=== PATIENT | male | born 1945 | race Caucasian/White ===

== ENCOUNTER 2017-04-09 09:33 | Inpatient (IN) | payer MEDICARE ==
[~2017-04-09] VITALS: Ht 170.2 cm; Wt 85.7 kg
--- NOTE | 2017-04-09 09:33 | NUR ---
Patient was BIBA and taken to bed 01 via gurney.
[2017-04-09 09:35] VITALS: BP 137/88
--- NOTE | 2017-04-09 09:50 | NUR ---
72 YO MALE BIB EMS FROM [facility] FOR POSSIBLE RECTAL BLEEDING. DENIES N/V/D; SKIN IS PINK/WARM/DRY; LUNGS CLEAR BL; HR EVEN AND REGULAR; PT DENIES ANY FEVER, CP, SOB, OR COUGH AT THIS TIME; PATIENT STATES PAIN OF 0/10 AT THIS TIME; VSS; PATIENT POSITIONED FOR COMFORT; HOB ELEVATED; BEDRAILS UP X2; BED DOWN. ER MD MADE AWARE OF PT STATUS.
[2017-04-09] MEDS ORDERED: DABI150C PO (09:58)
[2017-04-09] MEDS ORDERED: LEVE500T9 PO (09:58)
[2017-04-09] MEDS ORDERED: [UNRECOGNIZED DRUG - CODE] PO (09:58)
[2017-04-09] MEDS ORDERED: AMIO200T2 PO ×2 (09:58)
[2017-04-09] MEDS ORDERED: DEC4 PO (09:58)
[2017-04-09] MEDS ORDERED: ALPR0.5T2 PO (09:58)
[2017-04-09] MEDS ORDERED: ATOR20TA PO (09:58)
[2017-04-09] MEDS ORDERED: NOVN SUBQ (09:58)
[2017-04-09] MEDS ORDERED: VITA1TAB44 PO (09:58)
[2017-04-09] MEDS ORDERED: NOVR SUBQ (09:58)
[2017-04-09] MEDS ORDERED: TAMS0.4C96 PO (09:58)
[2017-04-09] MEDS ORDERED: FURO-572 PO (09:58)
[2017-04-09] MEDS ORDERED: CARER90 PO (09:58)
[2017-04-09] MEDS ORDERED: DOCU-299 PO (09:58)
[2017-04-09] MEDS ORDERED: OMEP20TC12 PO (09:58)
[2017-04-09] MEDS ORDERED: NACL 0.9% 1,000 ML IV ONE (10:05)
[2017-04-09 11:03] LABS: PROTHROMBIN TIME 12.7 secs (10.8-13.4)
[2017-04-09 11:07] LABS: CARBON DIOXIDE 25.7 mmol/L (21-32); CREATININE 1.2 mg/dL (0.7-1.3); POTASSIUM 4.7 mmol/L (3.5-5.1)
--- NOTE | 2017-04-09 11:10 | NUR ---
AAO IRISH SPEAKING PT REPOSITIONED FOR COMFORT WITH SON (PHYSICIAN) AT BEDSIDE
[2017-04-09 11:13] LABS: ALBUMIN 1.3 g/dL (3.4-5.0); TOTAL BILIRUBIN 0.9 mg/dL (0.0-1.0)
[2017-04-09 11:24] LABS: BASOPHILS # (AUTO) 0.1 K/uL (0.00-0.22); BASOPHILS % (AUTO) 0.8 % (0.0-2.0); EOSINOPHILS # (AUTO) 0.1 K/uL (0-0.4); HEMATOCRIT 25.2 % (36-52); HEMOGLOBIN 8.6 g/dL (12.0-18.0); LYMPHOCYTES # (AUTO) 0.3 K/uL (2.0-11.5); LYMPHOCYTES % (AUTO) 2.9 % (20.5-51.1); MEAN CORPUSCULAR HEMOGLOBIN 27 pg (27-31); MEAN CORPUSCULAR HGB CONC 34 g/dL (33-37); MEAN CORPUSCULAR VOLUME 78 fL (80-94); MONOCYTES # (AUTO) 0.2 K/uL (0.8-1.0); MONOCYTES % (AUTO) 1.7 % (1.7-9.3); NEUTROPHILS % (AUTO) 93.6 % (42.2-75.2); PLATELET COUNT (AUTO) 159 K/uL (140-450); RED BLOOD CELL COUNT(AUTO) 3.22 MIL/uL (4.20-6.10); RED CELL DISTRIBUTION WIDTH 21.1 % (11.6-13.7); WHITE BLOOD COUNT (AUTO) 11.7 K/uL (4.8-10.8)
[2017-04-09] MEDS ORDERED: NACL 0.9% 2,000 ML IV ONE (11:45)
[2017-04-09] MEDS ORDERED: MORPHINE SULFATE 2 MG/ML SYR IVP ONE (11:50)
--- NOTE | 2017-04-09 12:07 | NUR ---
REPOSITIONED TO LEFT SIDE WITH JAMAR DICKERSON ASSISTANCE AND SON AT BEDSIDE
[2017-04-09] MEDS ORDERED: ONDANSETRON 4 MG/2 ML VIAL IVP PRN (12:20)
[2017-04-09] MEDS ORDERED: HYDROcodone/APAP 7.5/325 MG 1 TAB PO PRN (12:20)
[2017-04-09] MEDS ORDERED: ACETAMINOPHEN 325 MG TAB PO PRN (12:20)
[2017-04-09] MEDS ORDERED: ALPRAZolam 0.5 MG TAB PO PRN (12:40)
[2017-04-09] MEDS ORDERED: INSULIN LISPRO SLIDING SCALE 100 UNITS/ML VIAL SUBQ PRN (12:55)
[2017-04-09] MEDS ORDERED: DEXTROSE 50% 50 ML SYR IVP PRN ×2 (12:55→16:45)
[2017-04-09 13:34] LABS: CHOL/HDL RATIO 2.6 (1-4.5); FREE T4 (FREE THYROXINE) 1.29 ng/dL (0.76-1.46); MAGNESIUM 1.8 mg/dL (1.8-2.4); PHOSPHORUS 4.5 mg/dL (2.5-4.9); THYROID STIMULATING HORMONE 0.02 uIU/mL (0.34-3.74)
[2017-04-09 15:30] VITALS: BP 136/85
--- NOTE | 2017-04-09 15:30 | NUR ---
Patient will be admitted to care of DR SHER. Admited to ICU. Will go to room ICU7. Belongings list completed. Report to BUCKY VIVEROS.
[2017-04-09 16:00] VITALS: BP 124/78
[2017-04-09 16:13] LABS: HEMATOCRIT 23.9 % (36-52); HEMOGLOBIN 7.8 g/dL (12.0-18.0)
--- NOTE | 2017-04-09 16:45 | NUR ---
AT BEDSIDE. ADM. INFORMATION OBTAINED FROM .
--- NOTE | 2017-04-09 17:00 | NUR ---
ECHOCARDIOGRAM DONE AT BEDSIDE.
[2017-04-09] MEDS: BLOOD GLUCOSE MONITORING 1 DEV DEV FS SCH ×2 (17:01→21:00)
[2017-04-09] MEDS: DEXT 5% /NACL 0.9% 1,000 ML IV SCH (17:01)
--- NOTE | 2017-04-09 17:01 | NUR ---
IV D5 0.9NS STARTED AT 50 ML/HR VIA LEFT AC IV SITE.
[2017-04-09] MEDS ORDERED: HYDROmorphone 1 MG/ML AMP IVP PRN (17:05)
--- NOTE | 2017-04-09 17:30 | NUR ---
ADMITTED FROM ER THIS 72 YR. OLD MALE PER [facility]IA [facility]. BY ER NURSES WITH CC OF RECTAL BLEEDING. UNABLE TO OBTAIN INFO FROM PT. DUE TO BEING DROWSY. FOLLOWS SIMPLE COMMANDS. HEPLOCK ON LEFT AC. BARNETT CATH INTACT AND PATENT. MULTIPLE SKIN TEARS NOTED ON BOTH LOWER EXT.. CAT GONSALEZ DR. PLACED ON ACCOUNTING ASSISTANT. IN SR WITHOUT ECTOPICS. BLOODY BM (LIQUID) MODERATE AMT. NOTED. PERINEAL CARE DONE. LOWER EXT. EDEMATOUS. LEFT GREATER THAN RIGHT. Addendum: 04/09/17 at 1755 by Alexandria Merchant RN ADMITTED AT 1530 NOT 1730.
--- NOTE | 2017-04-09 17:45 | NUR ---
SON AT BEDSIDE. UPDATED ON PT'S CONDITION.
--- NOTE | 2017-04-09 17:58 | NUR ---
US OF LOWER EXT. DONE
[2017-04-09 18:00] VITALS: BP 119/82
--- NOTE | 2017-04-09 18:00 | NUR ---
IV INCREASED TO 70 ML/HR.
--- NOTE | 2017-04-09 18:14 | NUR ---
MESSAGE LEFT WITH [facility] PER SON'S REQUEST.
--- NOTE | 2017-04-09 18:14 | NUR ---
DR. PENA AWARE OF PT'S WOUNDS.
[2017-04-09] MEDS: LEVOFLOXACIN 500 MG/D5W PREMIX 100 ML IV SCH (18:19)
[2017-04-09] MEDS ORDERED: DRY DRESSING TP PRN (18:30)
[2017-04-09] MEDS ORDERED: SKINTEGRITY HYDROGEL TP PRN (18:30)
[2017-04-09] MEDS ORDERED: Z-GUARD PASTE TP PRN (18:30)
--- NOTE | 2017-04-09 18:30 | NUR ---
WOKE UP BRIEFLY WHEN REPOSITIONED. FOLLOWS COMMANDS.WENT BACK TO SLEEP AFTER. URINE SPECIMEN SENT TO LAB.
--- NOTE | 2017-04-09 18:39 | NUR ---
REPORT GIVEN TO YOUNG.
[2017-04-09 18:54] LABS: APPEARANCE,URINE CLEAR (CLEAR); BILIRUBIN,URINE NEGATIVE (NEGATIVE); BLOOD, URINE 3+ (NEGATIVE); COLOR,URINE YELLOW (YELLOW); LEUKOCYTE ESTERASE ,URINE NEGATIVE (NEGATIVE); NITRITE, URINE NEGATIVE (NEGATIVE); UGLUCOSE NEGATIVE (NEGATIVE)
[2017-04-09 18:56] LABS: CALCIUM OXALATE CRYSTALS,UR 0-10 /HPF (None Seen); RBC,URINE 80-100 /HPF (0-5)
--- NOTE | 2017-04-09 19:20 | NUR ---
PT STABLE. REPORT GIVEN AND ENDORSED CARE TO AMI GUILLEN RN.
--- NOTE | 2017-04-09 19:30 | NUR ---
RECEIVED REPORT FROM BUCKY ZAZUETA. PT LAYING IN BED. NO GRIMACING NOTED. NO SIGNS OF DISTRESS NOTED. AFEBRILE. VS STABLE AT THIS TIME. PERRL. ABLE TO FOLLOW SIMPLE COMMANDS. PERIPHERAL IV ON RIGHT AC 22G WITH D5NS RUNNING AT 70ML/HR. SINUS RHYTHM ON MONITOR AT THIS TIME. BARNETT CATHETER INTACT, DRAINING WELL VIA GRAVITY. URINE YELLOW AND CLEAR. NO FOUL ODOR NOTED. ALL SAFETY PRECAUTIONS IN PLACE. WILL CONTINUE TO MONITOR PT. CALL LIGHT WITHIN REACH.
[2017-04-09 20:00] VITALS: BP 125/83
[2017-04-09] MEDS ORDERED: DOCUSATE SODIUM 100 MG GELCAP PO SCH (21:00)
[2017-04-09] MEDS ORDERED: BLOOD GLUCOSE MONITORING 1 DEV DEV FS SCH (21:00)
[2017-04-09] MEDS ORDERED: AMIODARONE 200 MG TAB PO SCH (21:00)
[2017-04-09] MEDS: DOCUSATE SODIUM 100 MG GELCAP PO SCH (21:32)
[2017-04-09] MEDS: ATORVASTATIN 20 MG TAB PO SCH (21:32)
[2017-04-09] MEDS: DEXAMETHASONE 4 MG TAB PO SCH (21:32)
[2017-04-09] MEDS: levETIRAcetam 100 MG/ML ORASYR PO SCH (21:33)
[2017-04-09] MEDS: PANTOPRAZOLE 40 MG INJ VIAL IVP SCH (21:33)
--- NOTE | 2017-04-09 21:54 | NUR ---
SCHEDULED MEDICATIONS ADMINISTERED. PT TOLERATED WELL. NO SOB NOTED. NO C/O PAIN AT THIS TIME. PT ABLE TO COMMUNICATE. HOB AT 30 DEGREES. ALL SAFETY PRECAUTIONS IN PLACE. CALL LIGHT WITHIN REACH. WILL CONTINUE TO MONITOR.
[2017-04-09 22:00] VITALS: BP 127/68
--- NOTE | 2017-04-09 23:00 | NUR ---
PT LAYING IN BED COMFORTABLE. PT HAS NO COMPLAINS OF PAIN. NO CHANGE OF CONDITION AT THIS TIME. VS STABLE. ALL SAFETY PRECAUTIONS IN PLACE. CALL LIGHT WITHIN REACH. WILL CONTINUE TO MONITOR PT.
[2017-04-10] VITALS (13 sets, daily range): BP systolic 96–152; BP diastolic 52–93
--- NOTE | 2017-04-10 01:20 | NUR ---
VS STABLE AT THIS TIME. PT LAYING IN BED COMFORTABLY. ABLE TO TOLERATE REPOSITIONING AND TURNING WELL. IV FLUIDS RUNNING. BARNETT CATHETER INTACT AND SECURED. AFEBRILE. NO CHANGE IN CONDITION. BED AT LOW POSITION. CALL LIGHT WITHIN REACH. SAFETY PRECAUTIONS IN PLACE. WILL CONTINUE TO MONITOR.
[2017-04-10] MEDS: DRY DRESSING TP SCH ×2 (01:40→13:00)
[2017-04-10] MEDS: SKINTEGRITY HYDROGEL TP SCH ×2 (01:40→13:00)
[2017-04-10] MEDS: Z-GUARD PASTE TP SCH ×2 (01:41→13:00)
[2017-04-10 02:10] LABS: HEMATOCRIT 21.8 % (36-52); HEMOGLOBIN 7.1 g/dL (12.0-18.0); MEAN CORPUSCULAR HEMOGLOBIN 26 pg (27-31); MEAN CORPUSCULAR HGB CONC 33 g/dL (33-37); MEAN CORPUSCULAR VOLUME 80 fL (80-94); PLATELET COUNT (AUTO) 137 K/uL (140-450); RED BLOOD CELL COUNT(AUTO) 2.74 MIL/uL (4.20-6.10); WHITE BLOOD COUNT (AUTO) 9.1 K/uL (4.8-10.8)
[2017-04-10 02:11] LABS: LYMPHOCYTES % (MANUAL) 5 % (20-46); MONOCYTES % (MANUAL) 3 % (5-12)
[2017-04-10] MEDS: DEXT 5% /NACL 0.9% 1,000 ML IV SCH ×2 (02:22→18:08)
--- NOTE | 2017-04-10 03:30 | NUR ---
PT HAD BM OF MEDIUM AMOUNT OF DARKISH RED TO BROWN STOOL. PT CLEANED AND LINENS CHANGED. PT TOLERATED BEING TURNED. PT ABLE TO COMMUNICATE AND ANSWER QUESTIONS. NO C/O PAIN CURRENTLY. ALL SAFETY PRECAUTIONS IN PLACE. CALL LIGHT WITHIN REACH.
--- NOTE | 2017-04-10 05:02 | NUR ---
PT IN BED AND ASLEEP. DOES NOT APPEAR TO BE IN ANY PAIN. VS STABLE AT THIS TIME. NO SIGNS OF DISTRESS NOTED. ALL SAFETY PRECAUTIONS ARE IN PLACE. CALL LIGHT WITHIN REACH. BED AT LOW POSITION. WILL CONTINUE TO MONITOR.
[2017-04-10 05:35] LABS: ANION GAP 13.1 (8-16); CARBON DIOXIDE 24.3 mmol/L (21-32); CREATININE 1.1 mg/dL (0.7-1.3); POTASSIUM 4.4 mmol/L (3.5-5.1)
[2017-04-10 05:54] LABS: MAGNESIUM 1.6 mg/dL (1.8-2.4); PHOSPHORUS 5.2 mg/dL (2.5-4.9)
[2017-04-10 06:05] LABS: HEMOGLOBIN 7.6 g/dL (12.0-18.0); RED CELL DISTRIBUTION WIDTH 21.3 % (11.6-13.7)
[2017-04-10] MEDS ORDERED: CALCIUM ACETATE 667 MG TAB PO SCH (06:10)
[2017-04-10 06:49] LABS: MEAN CORPUSCULAR HEMOGLOBIN 29 pg (27-31); MEAN CORPUSCULAR HGB CONC 36 g/dL (33-37); MEAN CORPUSCULAR VOLUME 79 fL (80-94); PLATELET COUNT (AUTO) 241 K/uL (140-450); RED BLOOD CELL COUNT(AUTO) 2.65 MIL/uL (4.20-6.10); WHITE BLOOD COUNT (AUTO) 12.4 K/uL (4.8-10.8)
--- NOTE | 2017-04-10 07:11 | NUR ---
REPORT GIVEN TO BUCKY TONG FOR CONTINUITY OF CARE. PT IN STABLE CONDITION.
--- NOTE | 2017-04-10 07:30 | NUR ---
RECEIVED REPORT FROM COMPOSING ROOM SUPERVISOR RN, BEDSIDE MONITOR SHOWS SR, ON ROOM AIR, NO SOB NOTED, DNR STATUS. PT IS DROWSY BUT AROUSABLE, IV TO RIGHT AC, SITE INTACT AND PATENT. ABDOMEN SOFT WITH ACTIVE BOWEL SOUND, GENERALIZED EDEMA NOTED, SKIN NON INTACT SEE WOUND ASSESSMENT, PT UNABLE TO TURN HIMSELF, WILL CONTINUE TO MONITOR.
[2017-04-10 07:34] LABS: LYMPHOCYTES % (MANUAL) 10 % (20-46); MONOCYTES % (MANUAL) 1 % (5-12)
--- NOTE | 2017-04-10 08:15 | NUR ---
PATIENT HAS BEEN SCREENED AND CATEGORIZED HIGH NUTRITION RISK. PATIENT WILL BE SEEN WITHIN 1-2 DAYS OF ADMISSION. 04/10/17-04/11/[address]
[2017-04-10] MEDS: BLOOD GLUCOSE MONITORING 1 DEV DEV FS SCH ×4 (08:30→20:53)
[2017-04-10] MEDS: PANTOPRAZOLE 40 MG INJ VIAL IVP SCH ×2 (08:40→20:43)
[2017-04-10] MEDS: levETIRAcetam 100 MG/ML ORASYR PO SCH ×2 (08:41→20:43)
[2017-04-10] MEDS: DOCUSATE SODIUM 100 MG GELCAP PO SCH ×2 (08:41→20:43)
[2017-04-10] MEDS: DEXAMETHASONE 4 MG TAB PO SCH ×2 (08:42→20:43)
--- NOTE | 2017-04-10 08:43 | NUR ---
FOLLOWED UP WITH [facility] REGARDING FAMILY REQUEST FOR [place] SPEAKING SEAFOOD TEAM MEMBER. NO ANSWER, LEFT MESSAGE WITH OUR CALLBACK NUMBER.
--- NOTE | 2017-04-10 08:45 | NUR ---
PT'S AND SON AT BEDSIDE, QUESTIONS ANSWERED. UPDATED PT'S CONDITION, PT IS DROWSY. PT'S FAMILY VERBALIZED UNDERSTANDING.
[2017-04-10] MEDS: INSULIN LISPRO SLIDING SCALE 100 UNITS/ML VIAL SUBQ PRN ×4 (08:56→20:56)
[2017-04-10] MEDS ORDERED: PANTOPRAZOLE 40 MG TABEC PO SCH (09:00)
[2017-04-10] MEDS ORDERED: LACTOBACILLUS RHAMNOSUS GG 1 EACH CAP PO SCH (09:00)
[2017-04-10] MEDS ORDERED: CARDIZEM 180 MG PO SCH (09:00)
[2017-04-10] MEDS ORDERED: DILTIAZEM 90 MG CAPER PO SCH (09:00)
[2017-04-10] MEDS ORDERED: FUROSEMIDE 20 MG TAB PO SCH (09:00)
[2017-04-10] MEDS ORDERED: FUROSEMIDE 40 MG/4 ML VIAL IVP SCH (09:00)
[2017-04-10] MEDS ORDERED: INSULIN DETEMIR 100 UNITS/ML 10 ML VIAL SUBQ SCH (09:00)
[2017-04-10] MEDS ORDERED: POTASSIUM CHLORIDE 10 MEQ TABER PO SCH (09:00)
[2017-04-10] MEDS ORDERED: VIT-B COMP/VIT-C/FOLIC ACID 1 TAB PO SCH (09:00)
[2017-04-10] MEDS ORDERED: TAMSULOSIN 0.4 MG CAP PO SCH (09:00)
--- NOTE | 2017-04-10 09:03 | NUR ---
SPOKE WITH [facility]. THEY ARE AWARE OF THE ADMIT OF THIS PATIENT, NO CM YET. FAXED INITIAL REVIEW TO [facility] [phone] PHONE [phone]
--- NOTE | 2017-04-10 09:38 | NUR ---
IS HERE AT BEDSIDE.
--- NOTE | 2017-04-10 09:52 | NUR ---
NOTIFIED RESIDENT BEDSIDE MONITOR CHANGED TO A-FIB. HR RATE [id number]
[2017-04-10] MEDS ORDERED: DILTIAZEM 25 MG/5 ML VIAL IVP SCH ×2 (10:19→11:14)
[2017-04-10] MEDS ORDERED: PROBIOTIC SCREEN 1 EA MISC MC PRN (10:25)
--- NOTE | 2017-04-10 10:25 | NUR ---
CARDIZEM 10 MG IVP GIVEN ORDERED, WILL CONTINUE TO MONITOR.
--- NOTE | 2017-04-10 11:26 | NUR ---
BEDSIDE MONITOR SHOWS HR 131, A-fib, BP126/80, o2 SAT 97%, CARDIZEM [address]ATCKINSON HOLMAN.
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
[2017-04-10] MEDS ORDERED: DILTIAZEM 125 MG in DEXTROSE 5% 100 ML IV SCH (12:20)
--- NOTE | 2017-04-10 12:50 | NUR ---
NOTIFIED DR. BEDSIDE MONITOR SHOWS SR AT THIS TIME.
[2017-04-10 12:59] LABS: HEMOGLOBIN 7.4 g/dL (12.0-18.0); MEAN CORPUSCULAR HEMOGLOBIN 26 pg (27-31); MEAN CORPUSCULAR HGB CONC 32 g/dL (33-37); MEAN CORPUSCULAR VOLUME 79 fL (80-94); PLATELET COUNT (AUTO) 184 K/uL (140-450); RED CELL DISTRIBUTION WIDTH 21.5 % (11.6-13.7); WHITE BLOOD COUNT (AUTO) 10.9 K/uL (4.8-10.8)
--- NOTE | 2017-04-10 13:21 | NUR ---
04/10/17 RD INITIAL ASSESSMENT COMPLETED PLEASE REFER TO NUTRITION ASSESSMENT UNDER CARE ACTIVITY FOR ESTIMATED NUTRITIONAL NEEDS. 1. CONTINUE CLEAR LIQUID DIET TOLERATED PER MD 2. HONOR FOOD PREFERENCES SHOULD PT BE ALERT ENOUGH TO EAT 3. NOTE PT DNR WITH NO ARTIFICIAL MEANS OF NUTRITION REQUESTED 4. RD TO FOLLOW-UP 2-3 DAYS, HIGH RISK WENDI SHARMA RD
[2017-04-10 13:56] LABS: CORRECTED WHITE BLOOD COUNT 10.1 K/uL (4.5-11.0); LYMPHOCYTES % (MANUAL) 5 % (20-46); METAMYELOCYTES % 1 % (0-0); MONOCYTES % (MANUAL) 3 % (5-12)
--- NOTE | 2017-04-10 17:00 | NUR ---
CHITO FROM [facility] HERE EARLIER AND SPOKE WITH FAMILY. THE DID NOT SIGN UP FOR HOSPICE. ORDER WRITTEN THAT PATIENT CAN BE TRANSFERED TO [facility], TELEMETRY BED/ I CALLED [facility] AND SPOKE WITH KATHIE CORNEJO [phone]. I FAXED THE ORDER TO [facility]. SHE ASKED FOR THE CHART TO BE COPIED AND XRAYS ON DISK. ASKED FOR THE PHONE NUMBER TO THE DOCTOR FOR A DOCTOR TO DOCTOR REPORT. I GAVE HER THE PHONE NUMBER FOR THE RESIDENT. I DR. MORRISON SPOKE WITH ME. THE NOW WANTS HOSPICE. I PUT A CALL IN TO [facility] AND SPOKE WITH UYEN. SHE WILL SEE IF SHE CAN GET SOMEONE TO SEE THE AGAIN. PHONE FOR UYEN [phone].
--- NOTE | 2017-04-10 17:50 | NUR ---
TRIED TO REPOSITION PT, PT'S REFUSED, PER PT'S , JUST KEEP PT LIKE THIS, SHE DOES NOT WANT PT FEEL PAIN WHEN TURN PT.
[2017-04-10] MEDS ORDERED: LEVO750T2 PO (18:00)
[2017-04-10] MEDS ORDERED: DOCU-299 PO (18:03)
[2017-04-10] MEDS ORDERED: Dry Dressing TP ×2 (18:03)
[2017-04-10] MEDS ORDERED: LACT10CA PO (18:03)
[2017-04-10] MEDS ORDERED: ZGUARD TP ×2 (18:03)
[2017-04-10] MEDS ORDERED: HYDGEL TP ×2 (18:03)
[2017-04-10] MEDS: LEVOFLOXACIN 500 MG/D5W PREMIX 100 ML IV SCH (18:07)
[2017-04-10 18:26] LABS: MEAN CORPUSCULAR HEMOGLOBIN 26 pg (27-31); MEAN CORPUSCULAR HGB CONC 33 g/dL (33-37); MEAN CORPUSCULAR VOLUME 78 fL (80-94); PLATELET COUNT (AUTO) 166 K/uL (140-450); RED BLOOD CELL COUNT(AUTO) 2.57 MIL/uL (4.20-6.10); RED CELL DISTRIBUTION WIDTH 20.7 % (11.6-13.7); WHITE BLOOD COUNT (AUTO) 10.1 K/uL (4.8-10.8)
[2017-04-10 18:36] LABS: HEMOGLOBIN 6.6 g/dL (12.0-18.0)
[2017-04-10 18:52] LABS: CORRECTED WHITE BLOOD COUNT 8.8 K/uL (4.5-11.0); LYMPHOCYTES % (MANUAL) 9 % (20-46); MONOCYTES % (MANUAL) 1 % (5-12)
[2017-04-10 18:53] LABS: METAMYELOCYTES % 1 % (0-0); PROMYELOCYTES % 3 % (0-0)
--- NOTE | 2017-04-10 19:30 | NUR ---
RECEIVED REPORT FROM BUCKY TONG AT BEDSIDE. PT IS DROWSY, AOX1, ABLE TO FOLLOW SIMPLE COMMEND, VSS, SEVERE PAIN WHEN REPOSITION. NO S/S OF DISTRESS, O2 AT 2L VIA NC, CLEAR LUNG SOUNDS, DENIES CHEST PAIN, SR ON OILFIELD PLANT AND FIELD OPERATOR, SOFT ABDOMEN WITH ACTIVE BOWEL SOUNDS, BARNETT CATHETER IN PLACE WITH CLEAR YELLOW URINE VIA GRAVITY. GENERALIZED EDEMA NOTED, GENERALIZED WEAKNESS TO ALL EXTREMITIES, SKIN IS WARM AND DRY TO TOUCH, SKIN TEARS NOTED (SEE WOUND ASSESSMENT). SAFETY PRECAUTION IN PLACE, HOB ELEVATED TO 30 DEGREES, WILL CONTINUE TO MONITOR. Addendum: 04/10/17 at 1957 by Mirella Bernal RN HOSPICE NURSE AT BEDSIDE EVALUATION AT THIS TIME.
[2017-04-10] MEDS: ATORVASTATIN 20 MG TAB PO SCH (20:42)
--- NOTE | 2017-04-10 20:50 | NUR ---
KELLY BOW MACHINE OPERATOR KATHIE CALLED, INFORMED HER THAT WILL DISCHARGE PT TO HOSPICE, DRYWALL PROFESSIONAL TIME IS 11:30PM.
--- NOTE | 2017-04-10 20:55 | NUR ---
NIGHT TIME MEDICATION GIVEN, PT ABLE TO SWALLOW PILLS WHOLE, TOLERATED WELL.
--- NOTE | 2017-04-10 23:05 | NUR ---
PT DISCHARGED TO HOME VIA GURNEY ACCOMPANIED WITH EMS, BELONGS AND DISCHARGE PACKAGE GIVEN TO EMS, PT IS IN STABLE CONDITION, VSS. IV SITE TO RIGHT AC DISCONTINUED, BARNETT CATHETER DISCONTINUED PER DR. PENA. CALLED PT'S THAT THE LEAVING TIME.
[2017-04-11] MEDS ORDERED: AMIODARONE 200 MG TAB PO SCH ×2 (09:00)
== END 2017-04-10 23:15 | disposition hospice, home (50) | DRG 871 ==
LOC: MED 09:33 → MIC 12:22
PROVIDERS: ADMIT Family Medicine; ATTEND Family Medicine
DX: A41.9 Sepsis, unspecified organism (principal); E43 Unspecified severe protein-calorie malnutrition; C78.5 Secondary malignant neoplasm of large intestine and rectum; C78.00 Secondary malignant neoplasm of unspecified lung; E11.22 Type 2 diabetes mellitus with diabetic chronic kidney disease; C90.00 Multiple myeloma not having achieved remission; C79.31 Secondary malignant neoplasm of brain; D62 Acute posthemorrhagic anemia; D68.59 Other primary thrombophilia; I42.1 Obstructive hypertrophic cardiomyopathy; I13.0 Hypertensive heart and chronic kidney disease with heart failure and stage 1 through stage 4 chronic kidney disease, or unspecified chronic kidney disease; N39.0 Urinary tract infection, site not specified; C64.9 Malignant neoplasm of unspecified kidney, except renal pelvis; Z66 Do not resuscitate; I25.10 Atherosclerotic heart disease of native coronary artery without angina pectoris; E66.3 Overweight; I50.9 Heart failure, unspecified; I48.2 Chronic atrial fibrillation; G40.909 Epilepsy, unspecified, not intractable, without status epilepticus; R74.0 Nonspecific elevation of levels of transaminase and lactic acid dehydrogenase [LDH]; E78.5 Hyperlipidemia, unspecified; K21.9 Gastro-esophageal reflux disease without esophagitis; F41.9 Anxiety disorder, unspecified; E02 Subclinical iodine-deficiency hypothyroidism; E86.0 Dehydration; N18.2 Chronic kidney disease, stage 2 (mild); N40.0 Benign prostatic hyperplasia without lower urinary tract symptoms; Z68.29 Body mass index [BMI] 29.0-29.9, adult; Z79.01 Long term (current) use of anticoagulants
CPT/HCPCS: 36415; 71010; 74000; 80048; 80053; 81001; 82150; 82948; 83036; 83605; 83690; 83735; 83880; 84100; 84439; 84443; 84484; 85018; 85025; 85610; 85730; 86886; 86900; 86901; 87040; 87070; 87075; 87081; 87086; 87186; 87205; 93005; 93925; 93970; 96361; 96374; 99291; A6248; C9113; J1815; J1940; J1956; J2270; J3490; J7030; J7042; J7060; Q0092